=== PATIENT | female | born 1990 | race Caucasian/White ===

== ENCOUNTER 2017-12-24 23:34 | Emergency (ER) | payer OTHER ==
[2017-12-24 23:52] LABS: Bilirubin Negative (Negative); Blood, Urine Large (Negative); Clarity Cloudy (Clear); Glucose, Urine (Dipstick) Negative (Negative); Leukocyte Negative (Negative); Nitrite Negative (Negative); Protein, Urine (Dipstick) 100 mg/dL (Neg-Trace); Urobilinogen 0.2 mg/dL (0.2-1.0); pH, Urine 5.5 (5.0-9.0)
[2017-12-24 23:54] LABS: Specific Gravity, Urine 1.027 (1.002-1.036)
[2017-12-25] LABS: Bacteria/HPF 3+ HPF (None Seen); Hyaline Casts/LPF NONE SEEN LPF (0-3 Hyaline); RBC/HPF GREATER THAN 50-TNTC HPF (0-3); Squamous Epithelial 0-3 HPF (0-3)
[2017-12-25] MEDS ORDERED: Morphine 4 MG/ML VIAL ONE ×2 (00:02→00:49)
[2017-12-25 00:16] LABS: Pregnancy Test - Urine (BHCG) Negative (Negative); Pregu Control Background? CLEAR/WHITE (CLR/WHITE); Pregu Control Bar Appear? YES (CONTROL BAR); Specific Gravity 1.027 (1.002-1.036)
[2017-12-25 00:17] LABS: #Basophils 0.1 thou/uL (0.0-0.2); #Eosinphils 0.2 thou/uL (0.0-0.7); #Lymphocytes 2.2 thou/uL (1.20-3.40); #Monocytes 0.6 thou/uL (0.11-0.59); %Basophils 1.2 % (0.0-1.0); %Eosinophils 2.5 % (0.0-10.0); %Lymphocytes 23.8 % (21.0-51.0); %Neutrophils 65.4 % (42.0-75.0); Hemoglobin 13.8 g/dL (12.0-16.0); Mean Corpuscular Hemoglobin 29.9 pg (27.0-31.0); Mean Corpuscular Volume 85.4 fL (78.0-98.0); Mean Platelet Volume 6.9 fL (7.4-10.4); Platelet Count 322 thou/uL (130-400); RBC Distribution Width 10.4 % (11.5-14.5); Red Blood Cell (RBC) Count 4.62 mill/uL (4.20-5.40); White Blood Cell (WBC) Count 9.1 thou/uL (4.8-10.8)
[2017-12-25 00:27] LABS: Anion Gap 12 mmol/L (10-20); BUN (Urea Nitrogen) 18 mg/dL (7.0-18.7); Calc. Creatinine Clearance 0 mL/min (70-130); Calcium 9.5 mg/dL (7.8-10.44); Carbon Dioxide 22 mmol/L (22-29); Chloride 109 mmol/L (98-107); Estimated GFR-MDRD 89; Glucose 119 mg/dL (70-105); Potassium 3.8 mmol/L (3.5-5.1); Sodium 139 mmol/L (136-145)
[2017-12-25] MEDS ORDERED: Ondansetron HCl/PF 4 MG/2 ML Vial ONE (00:49)
[2017-12-25] MEDS ORDERED: Ketorolac Tromethamine 30 MG/ML VIAL ONE (01:24)
--- NOTE | 2017-12-25 08:21 | CT ---
PRELIMINARY REPORT/[facility]/EMERGENCY AFTER HOURS PROCEDURE: EXAM: CT Abdomen and Pelvis Without Intravenous Contrast EXAM DATE/TIME: 12/25/2017 12:34 AM CLINICAL HISTORY: 27 years old, female; Pain; Abdominal pain; Flank; Right; Patient HX: RT flank pain that started 2 da ys ago and has progressively gotten worse. PT has HX of kidney infection in the past, gross hematuria TECHNIQUE: Axial computed tomography images of the abdomen and pelvis without intravenous contrast. All CT scans at this facility use at least one of these dose optimization techniques: automated exposure control; mA and/or kV adjustment per patient size (includes targeted exams where dose is matched to clinical indication); or iterative reconstruction. Coronal reformatted images were created and reviewed. COMPARISON: No relevant prior studies available. FINDINGS: Lower thorax: No acute findings. ABDOMEN: Liver: Normal. No mass. Gallbladder and bile ducts: Normal. No calcified stones. No ductal dilation. Pancreas: Normal. No ductal dilation. Spleen: Normal. No splenomegaly. Adrenals: Normal. No mass. Kidneys and ureters: Moderate right hydronephrosis secondary to 6 x 5 mm stone immediately proximal t o the ureterovesicular junction. 3 mm nonobstructing left renal stone. Stomach and bowel: Moderate distal and terminal ileal wall thickening consistent with ileitis. No obs truction. Appendix: The appendix is not visualized. PELVIS: Bladder: Unremarkable as visualized. Reproductive: Unremarkable as visualized. ABDOMEN and PELVIS: Intraperitoneal space: No free air. No significant fluid collection. Bones/joints: No acute fracture. No dislocation. Soft tissues: Unremarkable. Vasculature: Normal. No abdominal aortic aneurysm. Lymph nodes: Normal. No enlarged lymph nodes. IMPRESSION: Obstructing right ureterovesicular junction stone. Moderate distal and terminal ileal wall thickening consistent with ileitis. Given location and patien t age, inflammatory bowel disease as well as infectious disease are most likely etiologies. Thank you for allowing us to participate in the care of your patient. Dictated and Authenticated by: Adrianne Vyas MD 12/25/2017 1:50 AM Central Time ([place] & [place]) FINAL REPORT CT ABDOMEN WITHOUT CONTRAST CT PELVIS WITHOUT CONTRAST: Date: 12/25/17 HISTORY: Two days of right flank pain. COMPARISON: None. FINDINGS: This report is in agreement with the preliminary report by [facility]. There is right-sided obstructive uro shahida secondary to a solitary calculus in the distal right ureter, near the right ureterovesical junc tion measuring 0.4 mm. There is bowel wall thickening involving the distal ileum/terminal ileum. Liseth elate for infectious/inflammatory etiologies. POS: [facility]
== END 2017-12-25 02:47 | disposition home or self-care (01) ==
LOC: SCSER 23:34
DX: N13.2 Hydronephrosis with renal and ureteral calculous obstruction (principal); N39.0 Urinary tract infection, site not specified; K52.9 Noninfective gastroenteritis and colitis, unspecified
CPT/HCPCS: 74176; 80048; 81003; 81015; 81025; 85025; 96361; 96374; 96375; 96376; J1885; J2270; J2405

== ENCOUNTER 2017-12-29 11:40 | Emergency (ER) | payer OTHER ==
[2017-12-29] MEDS ORDERED: Ondansetron HCl/PF 4 MG/2 ML Vial ONE (12:17)
[2017-12-29] MEDS ORDERED: Ketorolac Tromethamine 30 MG/ML VIAL ONE (12:17)
[2017-12-29 12:43] LABS: #Basophils 0.1 thou/uL (0.0-0.2); #Lymphocytes 0.9 thou/uL (1.20-3.40); #Monocytes 0.6 thou/uL (0.11-0.59); #Neutrophils 7.3 thou/uL (1.40-6.50); %Basophils 0.8 % (0.0-1.0); %Eosinophils 0.1 % (0.0-10.0); %Lymphocytes 10.1 % (21.0-51.0); %Monocytes 6.6 % (0.0-10.0); %Neutrophils 82.3 % (42.0-75.0); Hemoglobin 13.1 g/dL (12.0-16.0); Mean Corpuscular HGB CONC 35.3 g/dL (32.0-36.0); Mean Corpuscular Hemoglobin 30.8 pg (27.0-31.0); Mean Corpuscular Volume 87.2 fL (78.0-98.0); Mean Platelet Volume 6.1 fL (7.4-10.4); Platelet Count 249 thou/uL (130-400); RBC Distribution Width 10.8 % (11.5-14.5); Red Blood Cell (RBC) Count 4.26 mill/uL (4.20-5.40); White Blood Cell (WBC) Count 8.9 thou/uL (4.8-10.8)
[2017-12-29 12:46] LABS: Bilirubin Negative (Negative); Blood, Urine Moderate (Negative); Clarity Clear (Clear); Glucose, Urine (Dipstick) Negative (Negative); Leukocyte Negative (Negative); Nitrite Negative (Negative); Protein, Urine (Dipstick) Negative (Neg-Trace); Specific Gravity, Urine 1.015 (1.005-1.030); Urobilinogen 0.2 mg/dL (0.2-1.0)
[2017-12-29 12:50] LABS: Pregnancy Test - Urine (BHCG) Negative (Negative); Pregu Control Background? CLEAR/WHITE (CLR/WHITE); Pregu Control Bar Appear? YES (CONTROL BAR); Specific Gravity 1.015 (1.002-1.036)
[2017-12-29 12:52] LABS: ALT (SGPT) 17 U/L (8-55); AST (SGOT) 26 U/L (5-34); Albumin 4.1 g/dL (3.5-5.0); Alkaline Phosphatase 63 U/L (40-150); Anion Gap 14 mmol/L (10-20); BUN (Urea Nitrogen) 10 mg/dL (7.0-18.7); Bilirubin, Total 0.4 mg/dL (0.2-1.2); CRP (Inflammatory) 3.21 mg/dL (= or < 0.5); Calc. Creatinine Clearance 0 mL/min (70-130); Calcium 9.4 mg/dL (7.8-10.44); Carbon Dioxide 24 mmol/L (22-29); Chloride 106 mmol/L (98-107); Estimated GFR-MDRD 87; Globulin 3.4 g/dL (2.4-3.5); Glucose 116 mg/dL (70-105); Lipase 15 U/L (8-78); Potassium 4.3 mmol/L (3.5-5.1); Protein, Total 7.5 g/dL (6.0-8.3); Sodium 140 mmol/L (136-145)
[2017-12-29 12:56] LABS: Bacteria/HPF None Seen HPF (None Seen); Hyaline Casts/LPF NONE SEEN LPF (0-3 Hyaline); Squamous Epithelial 0-3 HPF (0-3); WBC/HPF 0-3 HPF (0-3)
== END 2017-12-29 13:38 | disposition home or self-care (01) ==
LOC: SCSER 11:40
DX: N20.2 Calculus of kidney with calculus of ureter (principal); K50.00 Crohn's disease of small intestine without complications; Z79.899 Other long term (current) drug therapy
CPT/HCPCS: 36415; 80053; 81003; 81015; 81025; 83690; 85025; 86140; 87086; 96361; 96374; 96375; J1885; J2405

== ENCOUNTER 2018-02-14 13:18 | Outpatient (CLI) | payer OTHER ==
--- NOTE | 2018-02-14 18:13 | MRI ---
MRI ABDOMEN WITH AND WITHOUT IV CONTRAST (MR angiography): 02/14/18 HISTORY: Crohn's disease of the small intestine. FINDINGS: The liver, spleen, pancreas, adrenal glands, kidneys and gallbladder are normal. The small bowel loops are not abnormally dilated. There is thickening of wall of the terminal ileum w ith abnormal postcontrast enhancement. No abnormally loculated fluid collection is seen to suggest ab scess formation. No free fluid or lymphadenopathy is noted in the abdomen or pelvis. The bone marrow signal is normal. Uterus and ovaries are present. No definite evidence of fistulous communication is seen. IMPRESSION: Findings consistent with active Crohn's disease involving the terminal ileum. No evidence of bowel ob struction or abscess formation. POS: [facility]
== END 2018-02-14 13:19 | disposition home or self-care (01) ==
LOC: MRI 13:18
PROVIDERS: ATTEND Internal Medicine Gastroenterology
DX: K50.00 Crohn's disease of small intestine without complications (principal)
CPT/HCPCS: 74183; J1610

== ENCOUNTER 2018-11-06 13:52 | Outpatient (CLI) | payer OTHER ==
--- NOTE | 2018-11-06 14:03 | RAD ---
EXAM: 4 views of the left knee HISTORY: Knee pain COMPARISON: None FINDINGS: No knee effusion is seen. There is no evidence of acute fracture or dislocation. No signifi cant degenerative changes are seen. No soft tissue swelling is present. IMPRESSION: No evidence of acute osseous abnormality.
== END 2018-11-06 13:53 | disposition home or self-care (01) ==
LOC: RAD-FRANK 13:52
PROVIDERS: ATTEND Nurse Practitioner Family
DX: T14.90XA Injury, unspecified, initial encounter (principal); M25.562 Pain in left knee

== ENCOUNTER 2018-11-27 16:18 | Outpatient (CLI) | payer OTHER ==
--- NOTE | 2018-11-27 17:36 | MRI ---
MR OF THE LEFT KNEE WITHOUT CONTRAST INDICATION: Fall with patellar knee pain and instability TECHNIQUE: Axial and coronal PD fat sat, sagittal T2 fat sat, sagittal PD turbo spin echo and T1 tangela nal images were obtained of the left knee. COMPARISON: None. FINDINGS: Joint effusion: None. Semimembranosus-medial gastrocnemius popliteal cyst: None. Ligaments: The ACL, PCL, MCL and LCLC are intact. Extensor mechanism: Intact. Menisci: Intact. Articular cartilage: There is a partial-thickness articular cartilage fissure and delamination involv ing the medial patellar facet measuring 6.5 mm. This involves 75% of the articular cartilage thickness on image 14 of series 4. Osseous structures: There is a subcortical contusion involving the medial femoral condyle. Popliteus and IT band: Normal. IMPRESSION: 1. 1. Subcortical contusion of the anterior medial femoral condyle may reflect sequela of direct blunt t rauma. 2. Partial-thickness articular cartilage fissure and delamination involving the medial patellar facet .
== END 2018-11-27 16:19 | disposition home or self-care (01) ==
LOC: SCSMRI 16:18
PROVIDERS: ATTEND Orthopaedic Surgery
DX: M23.92 Unspecified internal derangement of left knee (principal); M22.8X2 Other disorders of patella, left knee

== ENCOUNTER 2019-03-06 08:02 | Outpatient (CLI) | payer OTHER ==
--- NOTE | 2019-03-06 08:55 | ULT ---
Abdominal Ultrasound: Multiple grayscale images of right upper quadrant obtained according to protocol. INDICATION: Pain FINDINGS: Liver: No focal lesion Gallbladder: Normal Gallbladder wall: Normal. Bills's Sign: Negative Common bile duct is normal. Ascites: None Spleen: Unremarkable. Pancreas: Partially obscured by bowel content, limiting assessment. Kidneys: No acute abnormalities. Aorta/IVC: No acute process. IMPRESSION: No acute abnormalities.
== END 2019-03-06 08:03 | disposition home or self-care (01) ==
LOC: SCSULT 08:02
PROVIDERS: ATTEND Internal Medicine Gastroenterology
DX: R74.0 Nonspecific elevation of levels of transaminase and lactic acid dehydrogenase [LDH] (principal); N20.0 Calculus of kidney
CPT/HCPCS: 93975